=== PATIENT | female | born 1955 | race Native Hawaiian/Other Pacific Islander ===

== ENCOUNTER 2018-09-08 13:51 | Inpatient (IN) | payer MEDICAID ==
[~2018-09-08] VITALS: Ht 152.4 cm; Wt 63.5 kg
[2018-09-08] MEDS ORDERED: UNK B/P MED (14:01)
--- NOTE | 2018-09-08 14:14 | NUR ---
PT IS IN ROOM #1A. DR ELIZONDO EVALUATED THE PT.
[2018-09-08] MEDS ORDERED: IV NORMAL SALINE 1000 ML BAG IV ONE (14:15)
[2018-09-08 14:34] LABS: BASOPHILS % (AUTO) 0.3 % (0.0-2.0); EOSINOPHILS % (AUTO) 0.1 % (0.0-7.0); HEMATOCRIT 38.4 % (31.2-41.9); HEMOGLOBIN 12.9 g/dL (10.9-14.3); LYMPHOCYTES # (AUTO) 0.7 K/uL (20.0-40.0); LYMPHOCYTES % (AUTO) 10.9 % (20.5-51.5); MEAN CORPUSCULAR HEMOGLOBIN 27.7 uug (24.7-32.8); MEAN CORPUSCULAR HGB CONC 34 g/dL (32.3-35.6); MEAN CORPUSCULAR VOLUME 82.3 fL (75.5-95.3); MONOCYTES # (AUTO) 0.6 K/uL (2.0-10.0); MONOCYTES % (AUTO) 9.3 % (0.0-11.0); NEUTROPHILS % (AUTO) 79.4 % (38.5-71.5); PLATELET COUNT (AUTO) 372 K/uL (179-408); RED BLOOD CELL COUNT(AUTO) 4.67 MIL/uL (3.63-4.92); WHITE BLOOD COUNT (AUTO) 6.3 K/uL (3.8-11.8)
[2018-09-08 14:43] LABS: BILIRUBIN,DIRECT 0.1 mg/dL (0.0-0.2); BILIRUBIN,TOTAL 0.4 mg/dL (0.2-1.0); TOTAL PROTEIN, SERUM 7.6 g/dL (6.4-8.2)
[2018-09-08 14:45] LABS: POTASSIUM 2.8 mmol/L (3.5-5.1)
[2018-09-08 14:58] LABS: *BILIRUBIN,URIN NEGATIVE (NEGATIVE); *BLOOD, URINE 1+ (NEGATIVE); *CLARITY,URINE CLEAR (CLEAR); *COLOR,URINE YELLOW (YELLOW); *KETONES,URINE NEGATIVE (NEGATIVE); *UROBILINOGEN,URINE 0.2 E.U./dl (NORMAL); LEUKOCYTE ESTERASE ,URINE NEGATIVE (NEGATIVE); NITRITE, URINE NEGATIVE (NEGATIVE); UGLUCOSE NEGATIVE (NEGATIVE)
[2018-09-08] MEDS ORDERED: POTASSIUM BICARBONATE/CIT AC 25 MEQ TABLET.EFF ONE (15:00)
[2018-09-08] MEDS ORDERED: POTASSIUM CHLORIDE 50 ML IV SCH (15:00)
[2018-09-08] MEDS ORDERED: POTASSIUM CHLORIDE 50 ML ONE (15:00)
[2018-09-08] MEDS ORDERED: POTASSIUM BICARBONATE/CIT AC 25 MEQ TABLET.EFF PO ONE (15:00)
[2018-09-08 15:14] LABS: WBC,URINE 0-3 /HPF (0-3)
[2018-09-08 15:15] LABS: SQUAMOUS EPITHELIAL CELL,UR FEW /HPF (NONE SEEN)
[2018-09-08] MEDS ORDERED: LOSA50TA39 PO (15:39)
[2018-09-08] MEDS ORDERED: DILT-32 PO (15:39)
[2018-09-08] MEDS ORDERED: ACET-2605 PO (15:39)
[2018-09-08] MEDS ORDERED: HYDR25TA4 PO (15:39)
[2018-09-08] MEDS ORDERED: METO-357 PO (15:39)
[2018-09-08] MEDS ORDERED: ACETAMINOPHEN 325 MG TABLET PO PRN (17:30)
[2018-09-08] MEDS ORDERED: POTASSIUM CHLORIDE 20 MEQ in IV LACTATED RINGERS SOLUTION 1,000 ML IV PRN (17:30)
[2018-09-08] MEDS ORDERED: ONDANSETRON 4 MG/2 ML VIAL IV PRN (17:30)
[2018-09-08] MEDS ORDERED: HYDROCODONE/APAP 5-325MG TABLET PO PRN (17:30)
[2018-09-08] MEDS ORDERED: Z GUARD REMEDY PASTE 57 GM TUBE TOP PRN (17:30)
--- NOTE | 2018-09-08 17:30 | NUR ---
ADMITTED PATIENT FROM ER, SHE HAD A SYNCOPE EPISODE AT WORK,
--- NOTE | 2018-09-08 17:32 | NUR ---
REPORT WAS GIVEN TO COMMISSARY WORKER. PT WAS TRANSFERED TO TELEMETRY ROOM #205.
[2018-09-08 17:56] VITALS: BP 153/80
[2018-09-08] MEDS ORDERED: POTASSIUM CHLORIDE 20 MEQ in IV LACTATED RINGERS SOLUTION 1,000 ML IV ONE (18:25)
[2018-09-08] MEDS ORDERED: POTA10CA43 PO (19:06)
[2018-09-08] MEDS ORDERED: COLC0.6C3 PO (19:09)
[2018-09-08 20:00] VITALS: BP 105/71
[2018-09-08] MEDS ORDERED: DIPHENOXYLATE HCL/ATROP SULF TABLET PO PRN (20:15)
[2018-09-09] VITALS: BP 118/67
[2018-09-09 04:00] VITALS: BP 112/68
--- NOTE | 2018-09-09 06:00 | NUR ---
PT ALERT, ORIENTED,AMBULATORY, DENIES ANY PAIN OR DISCOMFORT OVERNIGHT, OOB TO BATHROOM VOIDING ,NO SYNCOPAL EPISODE REPORTED, VSS,AFEBRILE SINUS RHYTHM ON MONITOR, ALL NEEDS ATTENDED, CONTINUE WITH IV FLUIDS, KEPT ATTENDED, CALL LIGHTS AT REACHED.
[2018-09-09 06:31] LABS: BASOPHILS % (AUTO) 0.4 % (0.0-2.0); EOSINOPHILS % (AUTO) 0.4 % (0.0-7.0); HEMOGLOBIN 12.5 g/dL (10.9-14.3); LYMPHOCYTES # (AUTO) 0.9 K/uL (20.0-40.0); MEAN CORPUSCULAR HEMOGLOBIN 28.1 uug (24.7-32.8); MEAN CORPUSCULAR HGB CONC 34 g/dL (32.3-35.6); MEAN CORPUSCULAR VOLUME 82.9 fL (75.5-95.3); MONOCYTES # (AUTO) 0.5 K/uL (2.0-10.0); MONOCYTES % (AUTO) 14.2 % (0.0-11.0); NEUTROPHILS # (AUTO) 2.1 K/uL (1.8-8.9); PLATELET COUNT (AUTO) 373 K/uL (179-408); RED BLOOD CELL COUNT(AUTO) 4.46 MIL/uL (3.63-4.92); WHITE BLOOD COUNT (AUTO) 3.5 K/uL (3.8-11.8)
[2018-09-09 06:44] LABS: CREATININE 0.8 mg/dL (0.6-1.3); MAGNESIUM 1.7 mg/dL (1.8-2.4); PHOSPHOROUS 2.6 mg/dL (2.5-4.9); POTASSIUM 3.3 mmol/L (3.5-5.1)
[2018-09-09] MEDS ORDERED: METOPROLOL SUCCINATE XL 50 MG TAB.SR.24H PO SCH (09:00)
[2018-09-09] MEDS ORDERED: DILTIAZEM HCL CD 120 MG CAP.SR.24H PO SCH (09:00)
[2018-09-09] MEDS ORDERED: LOSARTAN POTASSIUM 50 MG TABLET PO SCH (09:00)
[2018-09-09] MEDS ORDERED: DILTIAZEM HCL 90 MG TABLET PO SCH (09:00)
[2018-09-09 11:32] VITALS: BP 101/66
[2018-09-09] MEDS ORDERED: POTASSIUM CHLORIDE 20 MEQ TAB.PRT.SR PO ONE (12:00)
[2018-09-09] MEDS ORDERED: MAGNESIUM OXIDE 400 MG TABLET PO ONE (12:00)
--- NOTE | 2018-09-09 15:25 | NUR ---
Patient was given discharge instructions, IV removed, tele monitor removed, and Patient instructed to stop colchicine and hydrochlorothiazide. Patient was informed that the they should make a follow up appt with primary doctor. patient then was asked to wait to receive copies of discharge paperwork, but patient left the hospital without waiting for discharge paperwork.
[2018-09-09 15:41] VITALS: BP 101/62
== END 2018-09-09 16:25 | disposition home or self-care (01) | DRG 48 ==
LOC: ER 13:51 → TELE3 17:15
PROVIDERS: ADMIT Nurse Practitioner Acute Care; ATTEND Nurse Practitioner Acute Care
DX: G90.8 Other disorders of autonomic nervous system (principal); E83.42 Hypomagnesemia; E87.1 Hypo-osmolality and hyponatremia; E86.0 Dehydration; E87.6 Hypokalemia; I10 Essential (primary) hypertension; M10.9 Gout, unspecified; R19.7 Diarrhea, unspecified
CPT/HCPCS: 36415; 70030-TC; 70450; 71045; 83735; 84100; 84443; 85025; 85730; 93005; 93307; 93880; A4663; G0378; J3480; J7030; J7120